=== PATIENT | male | born 1945 | race Caucasian/White ===

== ENCOUNTER → 2016-07-26 | Outpatient (CLI) | payer OTHER ==
[~2016-07-26] MED LIST: ACYC-57 PO; AMLO-110 PO; ASPCH81X PO; B-COTAB18 PO; CALC500C70 PO; CALC600T9 PO; CETI10TA84 PO; ELAS-2208; GABA-113 PO; GLIM4TAB2 PO; INSU70IN2 SC; IPRA1AER2 INH; LEVO100T7 PO; LEVO50TA6 PO; LOSA1TAB38 PO; MONT1TAB5 PO; MULT-506 PO; NRN300 PO; OMEG10007 PO; PANT40TA PO; PRAV20TA PO; PRVC10 PO; RANI300T2 PO
--- NOTE | 2016-07-26 11:26 | DIAGNOSTIC IMAGING REPORT ---
SKELETAL SURVEY CLINICAL HISTORY: Multiple myeloma. COMPARISON STUDY: Skeletal survey dated 07/20/2015. FINDINGS: 18 radiographs from a skeletal survey are presented. Again seen are numerous osteolytic calvarial lesions, not significantly changed from 07/20/2015. Numerous osteolytic lesions are again seen throughout the spine, the ribs, and involving the bony pelvis. There is a mild chronic compression deformity of T12. A healed right-sided rib fracture is again seen. Subtle osteolytic lesions are identified within the proximal femora and the proximal humeri. The lung parenchyma is grossly clear. The heart is mildly enlarged. There is a nonobstructed abdominal bowel gas pattern. Advanced atherosclerotic calcification is noted in the abdominal aorta and its major branches. Degenerative change is observed throughout the spine. IMPRESSION: No significant change in multifocal osteolytic metastatic disease as compared to 07/20/2015. Dictated: 07/26/2016 10:20 AM Transcribed: 07/26/2016 11:24 AM Jennifer Electronically signed by: Nas Colunga M.D. 07/26/2016 11:25 AM Dictated Date/Time: 07/26/2016 10:20 AM
== END | disposition home or self-care (01) ==
LOC: C.RAD 09:38
PROVIDERS: ATTEND Nurse Practitioner
DX: C90.00 Multiple myeloma not having achieved remission (principal)

== ENCOUNTER → 2017-03-29 | Day surgery (SDC) | payer OTHER ==
[2017-02-20 08:18] VITALS: BMI 31.0
[~2017-03-29] VITALS: Ht 167.6 cm; Wt 88.6 kg
[~2017-03-29] MED LIST changes: -ACYC-57 PO; -CALC500C70 PO; -ELAS-2208; -GLIM4TAB2 PO; -IPRA1AER2 INH; -LEVO50TA6 PO; +LIDOCAINE HCL 2% 2 ML VIAL (20MG/ML) ONE; -NRN300 PO; -PRAV20TA PO; +PROPOFOL IV EMULSION 10 MG/ML 20 ML VIAL IV ONE
[2017-03-29 13:01] VITALS: Ht 167.6 cm; Wt 88.6 kg
[2017-03-29 13:06] VITALS: TEMP 36.5
--- NOTE | 2017-03-29 13:35 | Endo History and Physical ---
History & Physical Date of Service: Mar 29, 2017. Chief Complaint: GERD Referring Physician: HEYDI BAE History of Present Illness For EGD Past Surgical History Hx Cardiac Surgery: No Hx Internal Defibrillator: No Hx Pacemaker: No Hx Abdominal Surgery: No Hx of Implantable Prosthesis: No Hx Post-Op Nausea and Vomiting: No Hx Cancer Surgery: Yes (STEM CELL TX) Hx Thoracic Surgery: No Hx Orthopedic: Yes (RT/LEFT CTR) Hx Urinary Tract Surgery: No Family History None Social History Smoking Status: Never Smoker Hx Substance Use: No Hx Alcohol Use: No Allergies Coded Allergies: Lenalidomide (Verified Allergy, Intermediate, Urticaria, 03/29/17) PT CURRENTLY TAKING 5MG TAB Q2D BUT HAD A REACTION TO THE 25MG TABLET Current Medications Reported Home Medications Medications Dose Route/Sig Max Daily Dose Days Date Category Multivitamin (Multivitamins) Tab 1 Tab PO QAM 02/20/17 Reported Aspirin Chewable (Aspirin) 81 Mg Chew 81 Mg PO HS 02/20/17 Reported [place]-3 (Fish Oil) 1 Ea Cap 1 Cap PO QAM 02/20/17 Reported Calcium + D (Calcium Carbonate-Vitamin D) 1 Tab Tab 2 Tab PO DAILY AT LUNCH 02/20/17 Reported Vitamin B Complex (B-Complex Vitamins) 1 Tab Tab 1 Tab PO QAM 02/20/17 Reported Zyrtec (Cetirizine HCl) 10 Mg Tab 10 Mg PO QAM 02/20/17 Reported Montelukast Sodium 10 Mg Tab 1 Tab PO HS 90 02/20/17 Reported Protonix (Pantoprazole Sodium) 40 Mg Tab 40 Mg PO QAM 02/20/17 Reported Zantac (Ranitidine HCl) 300 Mg Tab 300 Mg PO HS 02/20/17 Reported Novolin 70/30 (Insulin Human Isoph/Insulin Regular) Inj 60 Units SC QAM 02/20/17 Reported Novolin 70/30 (Insulin Human Isoph/Insulin Regular) Inj 56 Units SC QPM 02/20/17 Reported Pravastatin Sodium (Pravastatin Sod) 10 Mg Tab 1 Tab PO QPM 02/20/17 Reported Cozaar (Losartan Potassium) 100 Mg Tab 100 Mg PO QAM 02/20/17 Reported Levothyroxine Sodium 100 Mcg Tab 1 Tab PO QAM 90 02/20/17 Reported Neurontin (Gabapentin) 300 Mg Cap 300 Mg PO HS 11/6/17 Reported Norvasc (Amlodipine Besylate) 5 Mg Tab 5 Mg PO HS 10/03/14 Reported Vital Signs Weight (Kilograms): 88.64 Height (Feet): 5 Height (Inches): 6 Date Time Temp Pulse Resp B/P (MAP) Pulse Ox O2 Delivery O2 Flow Rate FiO2 03/29/17 13:06 36.5 81 18 161/73 (102) 94 Room Air Physical Exam General Appearance: + obese Respiratory/Chest: Respiratory effort: no dyspnea Cardiovascular: Heart Auscultation: RRR Abdomen: Inspection & Palpation: soft Assessment and Plan GERD for EGD
--- NOTE | 2017-03-29 13:40 | Endo History and Physical ---
History & Physical Date of Service: Mar 29, 2017. Chief Complaint: GERD Referring Physician: HEYDI BAE History of Present Illness For EGD Past Surgical History Hx Cardiac Surgery: No Hx Internal Defibrillator: No Hx Pacemaker: No Hx Abdominal Surgery: No Hx of Implantable Prosthesis: No Hx Post-Op Nausea and Vomiting: No Hx Cancer Surgery: Yes (STEM CELL TX) Hx Thoracic Surgery: No Hx Orthopedic: Yes (RT/LEFT CTR) Hx Urinary Tract Surgery: No Family History None Social History Smoking Status: Never Smoker Hx Substance Use: No Hx Alcohol Use: No Allergies Coded Allergies: Lenalidomide (Verified Allergy, Intermediate, Urticaria, 03/29/17) PT CURRENTLY TAKING 5MG TAB Q2D BUT HAD A REACTION TO THE 25MG TABLET Current Medications Reported Home Medications Medications Dose Route/Sig Max Daily Dose Days Date Category Multivitamin (Multivitamins) Tab 1 Tab PO QAM 02/20/17 Reported Aspirin Chewable (Aspirin) 81 Mg Chew 81 Mg PO HS 02/20/17 Reported [place]-3 (Fish Oil) 1 Ea Cap 1 Cap PO QAM 02/20/17 Reported Calcium + D (Calcium Carbonate-Vitamin D) 1 Tab Tab 2 Tab PO DAILY AT LUNCH 02/20/17 Reported Vitamin B Complex (B-Complex Vitamins) 1 Tab Tab 1 Tab PO QAM 02/20/17 Reported Zyrtec (Cetirizine HCl) 10 Mg Tab 10 Mg PO QAM 02/20/17 Reported Montelukast Sodium 10 Mg Tab 1 Tab PO HS 90 02/20/17 Reported Protonix (Pantoprazole Sodium) 40 Mg Tab 40 Mg PO QAM 02/20/17 Reported Zantac (Ranitidine HCl) 300 Mg Tab 300 Mg PO HS 02/20/17 Reported Novolin 70/30 (Insulin Human Isoph/Insulin Regular) Inj 60 Units SC QAM 02/20/17 Reported Novolin 70/30 (Insulin Human Isoph/Insulin Regular) Inj 56 Units SC QPM 02/20/17 Reported Pravastatin Sodium (Pravastatin Sod) 10 Mg Tab 1 Tab PO QPM 02/20/17 Reported Cozaar (Losartan Potassium) 100 Mg Tab 100 Mg PO QAM 02/20/17 Reported Levothyroxine Sodium 100 Mcg Tab 1 Tab PO QAM 90 02/20/17 Reported Neurontin (Gabapentin) 300 Mg Cap 300 Mg PO HS 11/6/17 Reported Norvasc (Amlodipine Besylate) 5 Mg Tab 5 Mg PO HS 10/03/14 Reported Vital Signs Weight (Kilograms): 88.64 Height (Feet): 5 Height (Inches): 6 Date Time Temp Pulse Resp B/P (MAP) Pulse Ox O2 Delivery O2 Flow Rate FiO2 03/29/17 13:06 36.5 81 18 161/73 (102) 94 Room Air Physical Exam Respiratory/Chest: Respiratory effort: no dyspnea Assessment and Plan GERD for EGD
--- NOTE | 2017-03-29 13:53 | Discharge Instructions ---
Endoscopy Patient Instructions Date / Procedure(s) Performed Mar 29, 2017. EGD Allergy Information Coded Allergies: Lenalidomide (Verified Allergy, Intermediate, Urticaria, 03/29/17) PT CURRENTLY TAKING 5MG TAB Q2D BUT HAD A REACTION TO THE 25MG TABLET Discharge Date / Findings Mar 29, 2017. Normal EGD Medication Instructions Restart Stopped Medication(s): resume meds Reported Home Medications Medications Dose Route/Sig Max Daily Dose Days Date Category Multivitamin (Multivitamins) Tab 1 Tab PO QAM 02/20/17 Reported Aspirin Chewable (Aspirin) 81 Mg Chew 81 Mg PO HS 02/20/17 Reported [place]-3 (Fish Oil) 1 Ea Cap 1 Cap PO QAM 02/20/17 Reported Calcium + D (Calcium Carbonate-Vitamin D) 1 Tab Tab 2 Tab PO DAILY AT LUNCH 02/20/17 Reported Vitamin B Complex (B-Complex Vitamins) 1 Tab Tab 1 Tab PO QAM 02/20/17 Reported Zyrtec (Cetirizine HCl) 10 Mg Tab 10 Mg PO QAM 02/20/17 Reported Montelukast Sodium 10 Mg Tab 1 Tab PO HS 90 02/20/17 Reported Protonix (Pantoprazole Sodium) 40 Mg Tab 40 Mg PO QAM 02/20/17 Reported Zantac (Ranitidine HCl) 300 Mg Tab 300 Mg PO HS 02/20/17 Reported Novolin 70/30 (Insulin Human Isoph/Insulin Regular) Inj 60 Units SC QAM 02/20/17 Reported Novolin 70/30 (Insulin Human Isoph/Insulin Regular) Inj 56 Units SC QPM 02/20/17 Reported Pravastatin Sodium (Pravastatin Sod) 10 Mg Tab 1 Tab PO QPM 02/20/17 Reported Cozaar (Losartan Potassium) 100 Mg Tab 100 Mg PO QAM 02/20/17 Reported Levothyroxine Sodium 100 Mcg Tab 1 Tab PO QAM 90 02/20/17 Reported Neurontin (Gabapentin) 300 Mg Cap 300 Mg PO HS 02/20/17 Reported Norvasc (Amlodipine Besylate) 5 Mg Tab 5 Mg PO HS 10/03/14 Reported Provider Instructions Activity Restrictions - No exercising or heavy lifting for 24 hours. - Do not drink alcohol the day of the procedure. - Do not drive a car or operate machinery until the day after the procedure. - Do not make any important decisions or sign important papers in 24 hours after the procedure. Following Day: - Return to full activity which may include returning to work/school. Diet Start your diet with liquids and light foods (jello, soup, juice, toast). Then eat your usual diet if not nauseated. Treatment For Common After Affects For mild abdominal pain, bloating, or excessive gas: - Rest - Eat lightly - Lie on right side Follow-Up Information Follow-up with HEYDI BAE as scheduled Anesthesia Information What You Should Know You have had a procedure that required some medicine to reduce anxiety and discomfort. This treatment is called moderate sedation. After receiving the treatment, you may be sleepy, but you will be able to breathe on your own. The effects of the treatment may last for several hours. Follow these instructions along with Activity/Diet recommendations noted above: * Do NOT do anything where dizziness or clumsiness would be dangerous. * Rest quietly at home today, then you can be up and about tomorrow. * Have a responsible person stay with you the rest of today. * You may have had an I.V. today. If so, you may take the dressing off later today. Recommendations Call your doctor if: * Trouble breathing * Continuous vomiting for more than 24 hours * Temperature above 101 degrees * Severe abdominal pain or bloating * Pain not relieved by pain medicine ordered * There is increased drainage or redness from any incision * A large amount of rectal bleeding greater than 2-3 tablespoons. (If you had a polyp/s removed or have hemorrhoids, a small amount of blood - from the rectum is to be expected.) * You have any unanswered questions or concerns. IN THE EVENT OF A SERIOUS EMERGENCY, GO TO THE NEAREST EMERGENCY ROOM Your discharge instructions were prepared by provider River Gray. Patient Instructions Signature Page Floyd Kumar Patient (or Guardian) Signature/Date: I have read and understand the instructions given to me by my caregivers. Caregiver/RN/Doctor Signature/Date: The above-named patient and/or guardian has received patient instructions on this date. + Original Patient Signature Page (only) stays with chart. Please make copy for patient.
--- NOTE | 2017-03-29 13:55 | GI REPORT ---
Procedure Date: 03/29/2017 1:43 PM Procedure: Upper GI endoscopy Indications: Heartburn, Suspected esophageal reflux Medicines: Propofol total dose 140 mg IV, Lidocaine 80 mg IV Complications: No immediate complications. Estimated Blood Loss: Estimated blood loss: none. Procedure: Pre-Anesthesia Assessment: - Prior to the procedure, a History and Physical was performed, and patient medications, allergies and sensitivities were reviewed. The patient's tolerance of previous anesthesia was reviewed. - The risks and benefits of the procedure and the sedation options and risks were discussed with the patient. All questions were answered and informed consent was obtained. After obtaining informed consent, the endoscope was passed under direct vision. Throughout the procedure, the patient's blood pressure, pulse, and oxygen saturations were monitored continuously. The scope was introduced through the mouth, and advanced to the second part of duodenum. The upper GI endoscopy was accomplished without difficulty. The patient tolerated the procedure well. Findings: The esophagus was normal. The stomach was normal. The examined duodenum was normal. Impression: - Normal esophagus. - Normal stomach. - Normal examined duodenum. - No specimens collected. Recommendation: - Discharge patient to home (ambulatory). - Continue present medications. - Return to primary care physician PRN. River Gray M.D. River Gray MD 03/29/2017 1:55:18 PM This report has been signed electronically. Note Initiated On: 03/29/2017 1:43 PM I attest to the content of the Intraoperative Record and orders documented therein, exceptions below
[2017-03-29 14:25] VITALS: BP 157/73; PULSE 62; O2SAT 94
--- NOTE | 2017-03-29 14:39 | Anesthesiology Progress Note ---
Anesthesia Post Op Note Date & Time Mar 29, 2017 at 14:39 Vital Signs Pain Intensity: 0 Vital Signs Past 12 Hours Date Time Temp Pulse Resp B/P (MAP) Pulse Ox O2 Delivery O2 Flow Rate FiO2 03/29/17 14:25 62 16 157/73 (101) 94 Room Air 03/29/17 14:10 72 16 148/72 (97) 95 Room Air 03/29/17 13:55 80 16 151/76 (101) 95 Room Air 03/29/17 13:06 36.5 81 18 161/73 (102) 94 Room Air Notes Mental Status: alert / awake / arousable, participated in evaluation Pt Amnestic to Procedure: Yes Nausea / Vomiting: adequately controlled Pain: adequately controlled Airway Patency, RR, SpO2: stable & adequate BP & HR: stable & adequate Hydration State: stable & adequate Anesthetic Complications: no major complications apparent
== END | disposition home or self-care (01) ==
LOC: C.GI 12:18
PROVIDERS: ATTEND Internal Medicine Gastroenterology
DX: R12 Heartburn (principal); I10 Essential (primary) hypertension; E11.9 Type 2 diabetes mellitus without complications; E66.9 Obesity, unspecified; M19.90 Unspecified osteoarthritis, unspecified site; Z79.82 Long term (current) use of aspirin; Z79.4 Long term (current) use of insulin; Z79.899 Other long term (current) drug therapy; Z98.890 Other specified postprocedural states; Z68.31 Body mass index [BMI] 31.0-31.9, adult